=== PATIENT | male | born 2000 | race Caucasian/White ===

== ENCOUNTER 2023-08-05 00:42 | Day surgery (SDC) | payer OTHER, SELFPAY ==
[2023-08-04 09:59] VITALS: BMI 23.1
[2023-08-05 09:18] VITALS: BP 124/78; PULSE 82; RESP 19; TEMP 36.5; O2SAT 100
[2023-08-05] MEDS: LACTATED RINGERS 1,000 ML 150 ML IV CONT (09:26)
--- NOTE | 2023-08-05 09:55 | P.PNAN_ITS ---
Anes - Initial Pre Proc Eval Procedure: Operation Date: 08/05/23 10:30 Proposed Procedures p Esophagogastroduodenoscopy - Miek Quiñones MD Date/Time: 08/05/23 09:55 Surgeon: Mike Quiñones MD Pre Op Diagnosis: Dysphagia unspecified, other chest pain Patient Data Age: 22 Gender: M Height: 1.8 m Weight: 76.3 kg Last Vital Signs Temp 97.7 F 08/05/23 09:18 Pulse 82 08/05/23 09:18 Resp 19 08/05/23 09:18 BP 124/78 08/05/23 09:18 Pulse Ox 100 08/05/23 09:18 O2 Del Method Room Air 08/05/23 09:18 Allergies Allergy/AdvReac Type Severity Reaction Status Date / Time No Known Allergies Allergy Verified 08/05/23 09:17 Home Medications Medication Instructions Recorded Confirmed Type omeprazole 40 mg capsule,delayed 40 mg PO DAILY 07/29/23 08/04/23 History release Patient hx anesthesia problems: none Family hx anesthesia problems: none Results Review: All pre-operative results and documents have been reviewed as part of the pre- operative evaluation. [facility] Past Medical History Medical History Dysphagia Social History Social History Smoking status: Never smoker Alcohol intake: current Drinks per week: 2 Substance use type: does not use Living arrangements: with family Spiritual care concerns: No Anes - Eval Final PreProcedure Day of Procedure 08/05/23 09:55 Patient weight: normal Heart: regular rate and rhythm Lungs: clear to auscultation Airway: Mallampati scale class II Neurological: alert and oriented Last oral intake: >/= 8 hours ASA classification: II Emergent: no Anesthetic plan: proceed Anesthesia type and monitoring: general GIVS and standard monitoring Results Review: All pre-operative results and documents have been reviewed as part of the pre- operative evaluation. Informed Consent: The patient's anesthetic plan and its attendant risks and benefits were discussed with the patient/family/POA. Questions were solicited and answers provided to the satisfaction of the patient/family/POA.
--- NOTE | 2023-08-05 10:01 | WPDHPUPDATE1 ---
History and Physical Update Update Date/Time: 08/05/23 10:01 History and Physical has been reviewed, including an updated exam of the patient. There are NO changes in the patient's condition. Risks, benefits, and alternatives have been discussed and questions answered. Patient agrees to proceed with procedure.
[2023-08-05 10:17] VITALS: BP 121/75; PULSE 79; RESP 25; O2SAT 99
[2023-08-05 10:27] VITALS: BP 115/76; PULSE 73; RESP 19; O2SAT 98
[2023-08-05 10:37] VITALS: BP 115/78; PULSE 67; RESP 14; O2SAT 98
== END 2023-08-05 10:55 | disposition home or self-care (01) ==
PROVIDERS: PCP Nurse Practitioner Family; Visit Provider Internal Medicine Gastroenterology
PROC: 0DJ08ZZ Inspection of Upper Intestinal Tract, Via Natural or Artificial Opening Endoscopic (ICD-10-PCS; CPT 43235; principal; 2023-08-05 10:30)
DX: R13.10 Dysphagia, unspecified (principal)
CPT/HCPCS: 43239; 88305; J2704; J7120

== ENCOUNTER 2023-08-13 11:13 | Outpatient (CLI) | payer OTHER, SELFPAY ==
--- NOTE | ~2023-08-13 | US_ITS ---
. EXAMINATION: US soft tissue groin LT DATE: 08/13/2023 11:35 INDICATION: Left inguinal pain. TECHNIQUE: Multiple grayscale and Doppler ultrasound images of the left groin were obtained. COMPARISON: None FINDINGS: There is no abnormal mass, lymphadenopathy, or hernia in the patient's area of concern in l eft groin. IMPRESSION: 1. No abnormality in the patient's area of concern in left groin. Reviewed, dictated and finalized at location A. [employer]
== END 2023-08-13 11:14 ==
PROVIDERS: PCP Family Medicine; Visit Provider Nurse Practitioner Family
DX: R10.32 Left lower quadrant pain (principal)
CPT/HCPCS: 76882